=== PATIENT | male | born 1955 | race Caucasian/White ===

== ENCOUNTER → 2023-12-28 07:30 | Outpatient (REF) | payer MEDICARE, OTHER, SELFPAY ==
[2023-12-28 09:16] LABS: % Basophils 0.7 % (0-2); % Eosinophils 2.9 % (0-6); % Immature Granulocytes 0.4 % (0-0.5); % Lymphocytes 26.5 % (20.5-51.1); % Monocytes 6.5 % (1.7-9.3); Absolute Basophils 0.1 10^3/uL (0-0.2); Absolute Eosinophils 0.2 10^3/uL (0-0.7); Absolute Lymphocytes 1.8 10^3/uL (1.2-3.4); Absolute Monocytes 0.5 10^3/uL (0.1-0.6); Absolute Neutrophils 4.3 10^3/uL (1.4-6.5); Mean Corp Hgb Conc. 35.9 g/dL (33.0-37.0); Mean Corpuscular Hgb 31.9 pg (27.0-31.0); Mean Corpuscular Volume 88.8 fL (80.0-94.0); Mean Platelet Volume 10.1 fL (7.4-10.4); Nucleated Red Blood Cells % 0 % (-); Platelet Count 314 10^3/uL (130-400); Red Blood Cell Count 4.39 10^6/uL (4.70-6.10); Red Cell Dist. Width 12.8 % (11.5-14.5); White Blood Cell Count 6.9 10^3/uL (4.8-10.8)
[2023-12-28 09:40] LABS: Blood Urea Nitrogen 21 mg/dl (9-20); Calcium 9.9 mg/dl (8.4-10.2); Carbon Dioxide 30 mmol/L (22-30); Chloride 97 mmol/L (98-107); Glucose 143 mg/dl (70-99); Potassium 4.2 mmol/L (3.5-5.1); Sodium 137 mmol/L (135-145); eGFR > 60.00
== END ==
LOC: HWLAB 07:30
PROVIDERS: ATTENDING PHYSICIAN Student in an Organized Health Care Education/Training Program; FAMILY PHYSICIAN Family Medicine
DX: Z01.818 Encounter for other preprocedural examination (principal)
CPT/HCPCS: 36415; 80048; 85025

== ENCOUNTER → 2024-01-03 06:35 | Day surgery (SDC) | payer MEDICARE, OTHER, SELFPAY ==
[2024-01-03 14:44] VITALS: BMI 32.9
[2024-01-03 14:49] VITALS: BMI 32.9
[2024-01-03] MEDS: CELEBREX 200 MG PO (15:00)
[2024-01-03] MEDS: TYLENOL 1000 MG PO (15:00)
[2024-01-03] MEDS: NORMOSOL-R 1000 IV (15:29)
[2024-01-03 18:55] VITALS: BP 160/88
[2024-01-03 18:56] VITALS: BP 162/79
[2024-01-03 19:00] VITALS: BP 156/87
[2024-01-03] MEDS: DILAUDID 0.5 MG IV (19:06)
[2024-01-03 19:15] VITALS: BP 169/79
[2024-01-03] MEDS: DILAUDID 0.25 MG IV (19:17)
[2024-01-03 19:33] VITALS: BP 183/80
[2024-01-03] MEDS: ROXICODONE 5 MG PO (19:53)
== END | disposition home or self-care (01) ==
LOC: SDS 06:35
PROVIDERS: ATTENDING PHYSICIAN Student in an Organized Health Care Education/Training Program
DX: S92.012A Displaced fracture of body of left calcaneus, initial encounter for closed fracture (principal); W11.XXXA Fall on and from ladder, initial encounter
CPT/HCPCS: 28725; 28420; 73650; 76000; C1713

== ENCOUNTER → 2024-03-19 07:41 | Outpatient (REF) | payer MEDICARE, OTHER, SELFPAY ==
[2024-03-19 11:23] LABS: Glycohemoglobin (HgbA1c) 6.4 % (4.0-5.6)
[2024-03-19 13:40] LABS: ALT (SGPT) 45 U/L (0-50); AST (SGOT) 32 U/L (17-59); Albumin 4.8 g/dl (3.5-5.0); Alkaline Phosphatase 99 U/L (38-126); Blood Urea Nitrogen 24 mg/dl (9-20); Calcium 10.2 mg/dl (8.4-10.2); Carbon Dioxide 29 mmol/L (22-30); Chloride 98 mmol/L (98-107); Glucose 139 mg/dl (70-99); HDL Cholesterol 49 mg/dl; LDL Cholesterol, Calculated 91 mg/dl; Potassium 4.2 mmol/L (3.5-5.1); Sodium 134 mmol/L (135-145); Total Bilirubin 0.8 mg/dl (0.2-1.3); Total Cholesterol 178 mg/dl (50-199); Total Protein 7.5 g/dl (6.3-8.2); Triglyceride 190 mg/dl (10-149); Very Low Density Lipoprotein 38 mg/dl (0-30); eGFR > 60.00
== END ==
LOC: HWLAB 07:41
PROVIDERS: ATTENDING PHYSICIAN Family Medicine
DX: I10 Essential (primary) hypertension (principal); R73.01 Impaired fasting glucose; E78.2 Mixed hyperlipidemia
CPT/HCPCS: 36415; 80053; 80061; 83036

== ENCOUNTER → 2024-07-20 09:26 | Outpatient (REF) | payer MEDICARE, OTHER, SELFPAY ==
[2024-07-20 16:19] LABS: PSA, Total - Screen 2.19 ng/ml (0.0-4.0)
== END ==
LOC: HWLAB 09:26
PROVIDERS: ATTENDING PHYSICIAN Specialist; FAMILY PHYSICIAN Internal Medicine
DX: Z12.5 Encounter for screening for malignant neoplasm of prostate (principal)
CPT/HCPCS: 36415; G0103

== ENCOUNTER → 2024-10-17 14:46 | Outpatient (REF) | payer MEDICARE, OTHER, SELFPAY | LOC: HWRAD 14:46 | PROVIDERS: ATTENDING PHYSICIAN Internal Medicine Endocrinology, Diabetes & Metabolism; FAMILY PHYSICIAN Internal Medicine | DX: E04.2 Nontoxic multinodular goiter (principal) | CPT/HCPCS: 76536 ==

== ENCOUNTER → 2024-10-23 18:38 | Outpatient (REF) | payer MEDICARE, OTHER, SELFPAY | LOC: PAVMRI 18:38 | PROVIDERS: ATTENDING PHYSICIAN Physician Assistant Surgical; FAMILY PHYSICIAN Internal Medicine | DX: M25.561 Pain in right knee (principal) | CPT/HCPCS: 73721 ==

== ENCOUNTER 2024-12-28 06:30 | Day surgery (SDC) | payer MEDICARE, OTHER, SELFPAY ==
[2024-12-28] VITALS (7 sets, daily range): BP systolic 127–164; BP diastolic 75–81; BMI 30.7
[2024-12-28] MEDS: CELEBREX 200 MG PO (13:41)
[2024-12-28] MEDS: TYLENOL 1000 MG PO (13:42)
[2024-12-28] MEDS: NORMOSOL-R/PLASMALYTE-A 1000 IV (13:44)
== END 2024-12-28 17:50 | disposition home or self-care (01) ==
LOC: SDS 06:30
PROVIDERS: ATTENDING PHYSICIAN Specialist
DX: S83.241A Other tear of medial meniscus, current injury, right knee, initial encounter (principal); M22.41 Chondromalacia patellae, right knee; M17.11 Unilateral primary osteoarthritis, right knee; X58.XXXA Exposure to other specified factors, initial encounter
CPT/HCPCS: 29881

== ENCOUNTER → 2025-07-30 11:02 | Outpatient (REF) | payer MEDICARE, OTHER, SELFPAY ==
[2025-07-30 17:13] LABS: PSA, Total - Screen 2.66 ng/ml (0.0-4.0)
== END ==
LOC: HWLAB 11:02
PROVIDERS: ATTENDING PHYSICIAN Specialist; FAMILY PHYSICIAN Internal Medicine
DX: Z12.5 Encounter for screening for malignant neoplasm of prostate (principal)
CPT/HCPCS: 36415; G0103

== ENCOUNTER → 2025-08-05 14:12 | Outpatient (REF) | payer MEDICARE, OTHER, SELFPAY | LOC: HWRAD 14:12 | PROVIDERS: ATTENDING PHYSICIAN Internal Medicine Endocrinology, Diabetes & Metabolism; FAMILY PHYSICIAN Internal Medicine | DX: E04.2 Nontoxic multinodular goiter (principal) | CPT/HCPCS: 76536 ==

== ENCOUNTER 2025-10-30 06:27 | Day surgery (SDC) | payer MEDICARE, OTHER, SELFPAY ==
[2025-10-30 12:57] LABS: Glucose - Point of Care 99 mg/dl (70-99)
== END 2025-10-30 15:20 | disposition home or self-care (01) ==
LOC: GI 06:27
PROVIDERS: ATTENDING PHYSICIAN Specialist; FAMILY PHYSICIAN Internal Medicine
DX: Z12.11 Encounter for screening for malignant neoplasm of colon (principal); D17.5 Benign lipomatous neoplasm of intra-abdominal organs; K57.30 Diverticulosis of large intestine without perforation or abscess without bleeding; D12.3 Benign neoplasm of transverse colon; Z86.0101 Personal history of adenomatous and serrated colon polyps
CPT/HCPCS: 45385; 45380; 82962; 88305